=== PATIENT | female | born 2000 | race Caucasian/White ===

== ENCOUNTER → 2019-07-03 | Outpatient (CLI) | payer BC ==
[2019-07-03 17:17] LABS: Gliadin AB IgA, Deaminated NEGATIVE (NEGATIVE); Gliadin AB IgA, Unit <0.2 U/mL; Gliadin AB IgG, Deaminated NEGATIVE (NEGATIVE)
== END | disposition home or self-care (01) ==
LOC: LABWHC1 10:06
PROVIDERS: ATTEND Student in an Organized Health Care Education/Training Program
DX: K59.09 Other constipation (principal); R10.30 Lower abdominal pain, unspecified
CPT/HCPCS: 36415; 83516; 83993